=== PATIENT | female | born 1940 | race Caucasian/White ===

== ENCOUNTER → 2017-05-31 | Outpatient (CLI) | payer MEDICARE, BC ==
[~2017-05-31] MED LIST: ALLEGRA PO; AMARYL PO; ASPIRIN EC81 M1 PO; AVANDAMET 4 MG/1 TAB PO; BACITRACIN30 GM TOP; CERTAGEN PO; CIPRO PO; CRESTOR PO; DIABETA5 M1 PO; EXCEDRIN MIGRAI1 TA1 PO; FISH OIL 1,2001 EAC1 PO; FLAGYL PO; GLYNASE PO; IBUPROFEN PO; LISINOPRIL PO; LORTAB 5/500 TA1 TA1 PO; METFORMIN HCL1000 M1 PO; MULTI-DAY VITAM1 TAB PO; OMEGA XL PO; PANTOPRAZOLE SO40 MG PO; PHENERGAN12.5 MG PO; PRAVASTATIN SOD40 MG PO; PRILOSEC20 MG PO; PRINIVIL40 MG PO; PROTONIX PO; SERTRALINE HCL25 M2 PO; SYNTHROID PO; SYNTHROID0.15 MG PO; THERALITH XR T1 EACH PO; TOVIAZ8 MG PO; TRIGLIDE160 M1 PO; VESICARE5 MG PO; VIT B12; VITAL-D RX TABL1 TAB
--- NOTE | ~2017-05-31 | MR18 ---
[facility] A Service of [facility] RADIOLOGY TEXT RESULTS PATIENT: HILARIO STOVER LOCATION: [facility] : 42 UNIT #: [id number] AGE: [address]: Yandel Coyle II, MD SEX: F ORDER DR: [id number] [place] [id number] O MR#: [id number] Acc #: [id number] NAME: HILARIO STOVER : 1940 SEX: F STUDY DATE/TIME: 05/31/2017 14:53 UNIT: [facility] ROOM: STUDY DESCRIPTION: MR Brain Wo Contrast Attending Physician: Yandel Coyle II., M.D. Referring Physician: Yandel Coyle II., M.D. Ordering Physician: Yandel Coyle II., M.D. Primary Care Physician: Darshana Witt A.P.R.N. MRI CENTER REPORT This report is preliminary unless electronic signature is present. EXAM Brain MRI without. HISTORY Memory loss. No known injury. No history of surgery. The patient is a 77-year-old woman who complains of worsening memory loss with forgetfulness for zom-lc-iyles months. Patient's family has also noted the changes. Patient has a history of hypertension and diabetes. No history of cancer. COMMENT MRI of the brain was performed without contrast using routine 1.5T imaging technique. Head CT comparison is from 06/20/2013. There is no evidence for a recent ischemic insult on the diffusion series. There is mild generalized atrophy. No particular pattern of volume loss is appreciated. No extraaxial fluid collection or intracranial mass effect is suspected. Midline structures are unremarkable. The major arterial intracranial flow voids are maintained. The mastoid air cells are clear. The paranasal sinuses are essentially clear. There is zhpj-am-fblqoaei white matter signal abnormality most confluent in the periventricular white matter. It is nonspecific but likely due to small vessel disease given patient age group. Minimal signal abnormality in the lelo is probably due to small vessel disease also. There is no MRI evidence for recent intracranial hemorrhage. IMPRESSION There is ppti-ay-zfvelsmq probable sequelae of small vessel disease and mild generalized atrophy. There is no particular pattern of atrophy seen. No recent ischemic insult is suspected. No extraaxial fluid collection or STS. [facility] A Service of [facility] RADIOLOGY TEXT RESULTS PATIENT: HILARIO STOVER LOCATION: [facility] : 42 UNIT #: [id number] AGE: [address]: Yandel Coyle II, MD SEX: F ORDER DR: intracranial mass effect. Dictated by... Stephanie Dias M.D. THIS IS AN ELECTRONICALLY VERIFIED REPORT Stephanie Dias M.D. at 06/01/2017 2:03 PM MAKENNA/pat TD: 06/01/2017 11:20 JOB #: [id number] MRI CENTER REPORT Page 1 of 1
[2017-05-31 17:15] LABS: POC - CREATININE 1.49 mg/dL (0.44-1.03)
== END | disposition home or self-care (01) ==
LOC: SMRI 05-31 07:39 → CMRI 05-27 09:00 → SMRI 07:39 → CMRI 14:30
PROVIDERS: Psychiatry & Neurology Neurology
DX: R41.3 Other amnesia (principal)
CPT/HCPCS: 70551; 82565